=== PATIENT | male | born 1945 | race Caucasian/White ===

== ENCOUNTER 2018-01-06 10:24 | Outpatient (REF) | payer BC, SELFPAY ==
--- NOTE | 2018-01-06 08:50 | SKI_PTH ---
PATIENT: Dandy Cai JR LOC: [id number] U#:[id number] AGE/SX: 72/M ROOM: RE01/06/[address]: Elton Tinoco : 1945 BED: DIS: 01/06/2018 SPEC #: [id number] RECD: 01/09/18 11:54 STATUS: TOM CRENSHAW #: [id number] RAINER: 01/06/18 08:[address]: Elton Tinoco DEPT: Surgical Specimen RECD BY: Danelle Anderson Tissues: 1 - SKIN BIOPSY(SHAVE/PUNCH) Procedures: SKIN LEVEL 4 Comments: [id number]
== END 2018-01-06 10:44 ==
LOC: NCHCN 10:24
PROVIDERS: PCP Internal Medicine; Visit Provider Internal Medicine
DX: L82.1 Other seborrheic keratosis (principal)
CPT/HCPCS: 88305

== ENCOUNTER 2019-06-06 09:56 | Outpatient (REF) | payer BC, SELFPAY ==
[2019-06-06 22:16] LABS: Anion Gap 10.7 mmol/L (3-11); BUN 14 mg/dL (7-18); CO2 26.3 mmol/L (21.0-32.0); CREATININE 1.01 mg/dL (0.70-1.30); Calcium 9.1 mg/dL (8.5-10.1); Calculated LDL 94 mg/dL (<100); Chloride 102 mmol/L (98-107); Cholesterol 179 mg/dL (<200); Glucose 101 mg/dL (74-106); HDL Cholesterol 73 mg/dL (40-60); Potassium 4.5 mmol/L (3.5-5.1); Sodium 139 mmol/L (136-145); Triglyceride 62 mg/dL (<150)
== END 2019-06-06 10:16 ==
LOC: NCHCN 09:56
PROVIDERS: PCP Internal Medicine; Visit Provider Internal Medicine
DX: L11.1 Transient acantholytic dermatosis [Grover] (principal); Z13.6 Encounter for screening for cardiovascular disorders; Z00.00 Encounter for general adult medical examination without abnormal findings
CPT/HCPCS: 80048; 80061

== ENCOUNTER 2023-08-10 17:56 | Outpatient (REF) | payer MEDICARE, SELFPAY ==
[2023-08-10 14:34] LABS: HCT 40.8 % (40.0-50.0); HGB 13.8 g/dL (13.5-17.5); MCH 32.1 pg (27.0-33.0); MCHC 33.8 % (32.0-36.0); MCV 95 fL (80-95); MPV 10.3 fL (8.0-11.0); Platelet Count 247 10^3/uL (130-400); RDW 13.5 % (11.8-14.1); RDW-SD 47.3 fL; WBC 2.08 10^3/uL (4.4-10.8)
[2023-08-10 15:27] LABS: ALT 23 U/L (16-63); AST 24 U/L (15-37); Alkaline Phosphatase 57 U/L (46-116); Anion Gap 8.2 mmol/L (3-11); BUN 15 mg/dL (7-18); Bilirubin, Total 0.5 mg/dL (0.2-1.0); CO2 25.8 mmol/L (21.0-32.0); Chloride 104 mmol/L (98-107); Estimated GFR 77.52 (mL/min/1.73m2); Glucose 94 mg/dL (74-106); Potassium 4.2 mmol/L (3.5-5.1); Sodium 138 mmol/L (136-145); Uric Acid 5.8 mg/dL (3.5-7.2)
[2023-08-10 22:56] LABS: PSA, Diagnostic 0.8 ng/mL (<=6.5)
== END 2023-08-10 17:57 | disposition home or self-care (01) ==
LOC: NCHCN 17:56
PROVIDERS: Physician Assistant; PCP Internal Medicine; Visit Provider Internal Medicine
DX: M10.9 Gout, unspecified (principal); Z00.00 Encounter for general adult medical examination without abnormal findings; N40.1 Benign prostatic hyperplasia with lower urinary tract symptoms; N13.8 Other obstructive and reflux uropathy
CPT/HCPCS: 80053; 85027; 84153; 84550

== ENCOUNTER 2023-09-19 13:02 | Outpatient (REF) | payer MEDICARE, SELFPAY ==
[2023-09-19 14:48] LABS: Abs Immature Grans 0.01 10^3/uL (0.0-0.06); Absolute Basophil Count 0.01 10^3/uL (0.0-0.2); Absolute Eosinophil Count 0.01 10^3/uL (0.0-0.7); Absolute Lymphocyte Count 1.11 10^3/uL (1.2-3.4); Absolute Monocyte Count 0.88 10^3/uL (0.1-0.8); Basophils % 0.3 %; Eosinophils % 0.3 %; HCT 40.5 % (40.0-50.0); HGB 13.5 g/dL (13.5-17.5); Immature Grans % 0.3 %; MCH 32.2 pg (27.0-33.0); MCHC 33.3 % (32.0-36.0); MCV 97 fL (80-95); MPV 10.2 fL (8.0-11.0); Monocytes % 22.2 %; Neutrophils % 48.9 %; Platelet Count 231 10^3/uL (130-400); RBC 4.19 10^6/uL (4.36-5.78); RDW 13.9 % (11.8-14.1); RDW-SD 49.2 fL; WBC 3.97 10^3/uL (4.4-10.8)
[2023-09-19 14:50] LABS: Absolute Neutrophil Count 1.94 10^3/uL (1.2-6.7)
== END 2023-09-19 13:03 | disposition home or self-care (01) ==
LOC: NCHCN 13:02
PROVIDERS: PCP Internal Medicine; Visit Provider Internal Medicine
DX: D72.819 Decreased white blood cell count, unspecified (principal)
CPT/HCPCS: 85025

== ENCOUNTER 2024-08-09 15:43 | Outpatient (REF) | payer MEDICARE, SELFPAY ==
[2024-08-09 21:33] LABS: HCT 34.8 % (40.0-50.0); HGB 11.5 g/dL (13.5-17.5); MCH 30.1 pg (27.0-33.0); MCV 91 fL (80-95); MPV 10.3 fL (8.0-11.0); Platelet Count 218 10^3/uL (130-400); RBC 3.82 10^6/uL (4.36-5.78); RDW 15.3 % (11.8-14.1); RDW-SD 50.7 fL; WBC 3.38 10^3/uL (4.4-10.8)
[2024-08-09 21:51] LABS: Anion Gap 6.4 mmol/L (3-11); BUN 18 mg/dL (7-18); CO2 27.6 mmol/L (21.0-32.0); Calcium 9.3 mg/dL (8.5-10.1); Chloride 106 mmol/L (98-107); Estimated GFR 77.04 (mL/min/1.73m2); Glucose 96 mg/dL (74-106); Potassium 4.8 mmol/L (3.5-5.1); Sodium 140 mmol/L (136-145)
== END 2024-08-09 15:44 | disposition home or self-care (01) ==
LOC: NCHCN 15:43
PROVIDERS: PCP Internal Medicine; Visit Provider Internal Medicine
DX: D72.819 Decreased white blood cell count, unspecified (principal); Z00.00 Encounter for general adult medical examination without abnormal findings
CPT/HCPCS: 80048; 85027

== ENCOUNTER 2024-08-20 14:20 | Outpatient (REF) | payer MEDICARE, SELFPAY ==
[2024-08-20 14:55] LABS: Absolute Basophil Count 0.01 10^3/uL (0.0-0.2); Absolute Eosinophil Count 0.04 10^3/uL (0.0-0.7); Absolute Lymphocyte Count 0.88 10^3/uL (1.2-3.4); Absolute Monocyte Count 0.58 10^3/uL (0.1-0.8); Absolute Neutrophil Count 1.23 10^3/uL (1.2-6.7); Basophils % 0.4 %; Eosinophils % 1.5 %; HCT 35.2 % (40.0-50.0); HGB 11.6 g/dL (13.5-17.5); Lymphocytes % 32.1 %; MCH 29.8 pg (27.0-33.0); MCV 91 fL (80-95); MPV 10.5 fL (8.0-11.0); Monocytes % 21.2 %; Neutrophils % 44.8 %; Platelet Count 235 10^3/uL (130-400); RBC 3.89 10^6/uL (4.36-5.78); RDW 15.4 % (11.8-14.1); RDW-SD 51.1 fL; WBC 2.74 10^3/uL (4.4-10.8)
[2024-08-20 16:20] LABS: ALT 18 U/L (16-63); AST 24 U/L (15-37); Albumin 4.1 g/dL (3.4-5.0); Alkaline Phosphatase 67 U/L (46-116); Bilirubin, Direct 0.1 mg/dL (0.0-0.2); Bilirubin, Total 0.4 mg/dL (0.2-1.0); Ferritin 26 ng/mL (26-388); Total Protein 8.1 g/dL (6.4-8.2); Uric Acid 5.6 mg/dL (3.5-7.2)
[2024-08-21 18:33] LABS: Iron 28 ug/dL (65-175); Total Iron Binding Capacity 355 ug/dL (250-450); Transferrin Sat 8 % (20-55)
[2024-08-21 19:28] LABS: Vitamin B12 397 pg/mL (193-986)
== END 2024-08-20 14:21 | disposition home or self-care (01) ==
LOC: NCHCN 14:20
PROVIDERS: PCP Internal Medicine; Visit Provider Internal Medicine
DX: D64.9 Anemia, unspecified (principal); D72.819 Decreased white blood cell count, unspecified; M10.9 Gout, unspecified
CPT/HCPCS: 80076; 82607; 82728; 83540; 83550; 84550; 85025; 85045

== ENCOUNTER 2024-08-27 12:37 | Outpatient (REF) | payer MEDICARE, SELFPAY ==
[2024-08-28 12:07] LABS: IgA 479 mg/dL (85-499); Interpretation (See Note); Tissue Transglutaminase IgA <4.0 CU (<20.0)
== END 2024-08-27 12:38 | disposition home or self-care (01) ==
LOC: NCHCN 12:37
PROVIDERS: PCP Internal Medicine; Visit Provider Internal Medicine
DX: E61.1 Iron deficiency (principal)
CPT/HCPCS: 82784; 83516

== ENCOUNTER 2025-02-11 10:11 | Outpatient (REF) | payer MEDICARE, SELFPAY ==
[2025-02-12 17:18] LABS: Abs Immature Grans 0.04 10^3/uL (0.0-0.06); HCT 37.2 % (40.0-50.0); HGB 12.4 g/dL (13.5-17.5); Immature Grans % 0.6 %; MCH 31.8 pg (27.0-33.0); MCHC 33.3 % (32.0-36.0); MCV 95 fL (80-95); MPV 10.4 fL (8.0-11.0); Platelet Count 220 10^3/uL (130-400); RBC 3.90 10^6/uL (4.36-5.78); RDW 14.3 % (11.8-14.1); RDW-SD 50.4 fL; WBC 6.20 10^3/uL (4.4-10.8)
[2025-02-12 17:32] LABS: Iron 112 ug/dL (65-175); Total Iron Binding Capacity 290 ug/dL (250-450); Transferrin Sat 39 % (20-55)
[2025-02-12 17:35] LABS: Ferritin 62 ng/mL (26-388); Uric Acid 5.2 mg/dL (3.5-7.2)
== END 2025-02-11 10:12 | disposition home or self-care (01) ==
LOC: NCHCN 10:11
PROVIDERS: PCP Internal Medicine; Visit Provider Internal Medicine
DX: M1A.9XX0 Chronic gout, unspecified, without tophus (tophi) (principal); D64.9 Anemia, unspecified
CPT/HCPCS: 82728; 83540; 83550; 84550; 85025